=== PATIENT | male | born 1975 | race Caucasian/White ===

== ENCOUNTER 2017-10-15 07:37 | Emergency (ER) | payer OTHER ==
[~2017-10-15] VITALS: Ht 190.5 cm; Wt 127.0 kg
[2017-10-15 07:40] VITALS: BP 146/76
--- NOTE | 2017-10-15 07:43 | NUR ---
Pt ambulated to bed 11.
--- NOTE | 2017-10-15 07:56 | NUR ---
PATIENT PRESENTS TO ED WITH laceration to left lower leg 15 mins prior to arrival; pt states he bumped into something that had a screw sticking out hx denies; DENIES N/V/D; SKIN IS PINK/WARM/DRY; AAOX4 WITH EVEN AND STEADY GAIT; LUNGS CLEAR BL; HR EVEN AND REGULAR; PT DENIES ANY FEVER, CP, SOB, OR COUGH AT THIS TIME; PATIENT STATES PAIN OF 5/10 AT THIS TIME; VSS; PATIENT POSITIONED FOR COMFORT; HOB ELEVATED; BEDRAILS UP X2; BED DOWN. ER MD MADE AWARE OF PT STATUS.
[2017-10-15] MEDS ORDERED: LIDOCAINE MPF 1% - **ER/OR** 5 ML ONE (08:03)
[2017-10-15] MEDS ORDERED: BACITRACIN OINT 500 UNITS/GM PKT TP ONE (08:33)
[2017-10-15 08:37] VITALS: BP 113/74
--- NOTE | 2017-10-15 08:37 | NUR ---
Patient discharged with v/s stable. Written and verbal after care instructions given and explained. Patient alert, oriented and verbalized understanding of instructions. Ambulatory with steady gait. All questions addressed prior to discharge. ID band removed. Patient advised to follow up with PMD. Rx of MOTRIN, NEOSPORIN given. Patient educated on indication of medication including possible reaction and side effects. Opportunity to ask questions provided and answered.
[2017-10-15] MEDS: LIDOCAINE 1% 500 MG/50 ML VIAL INJ SCH (08:39)
== END 2017-10-15 08:37 | disposition home or self-care (01) ==
LOC: MED 07:37
DX: S81.812A Laceration without foreign body, left lower leg, initial encounter (principal); R03.0 Elevated blood-pressure reading, without diagnosis of hypertension; W45.8XXA Other foreign body or object entering through skin, initial encounter; Y93.89 Activity, other specified; Y92.89 Other specified places as the place of occurrence of the external cause; Y99.8 Other external cause status
CPT/HCPCS: 12002; 99283; J2001